=== PATIENT | female | born 1960 | race Caucasian/White ===

== ENCOUNTER → 2023-07-07 12:01 | Outpatient (REF) | payer OTHER, SELFPAY | LOC: PAVMRI 12:01 | PROVIDERS: ATTENDING PHYSICIAN Surgery Surgical Oncology; FAMILY PHYSICIAN Family Medicine | DX: D3A.8 Other benign neuroendocrine tumors (principal) | CPT/HCPCS: 74183; A9575 ==

== ENCOUNTER → 2023-07-17 14:50 | Outpatient (REF) | payer OTHER, SELFPAY | LOC: HWRAD 14:50 | PROVIDERS: ATTENDING PHYSICIAN Family Medicine | DX: G47.33 Obstructive sleep apnea (adult) (pediatric) (principal) | CPT/HCPCS: 70490; 71250 ==

== ENCOUNTER → 2023-09-01 09:00 | Outpatient (REF) | payer OTHER, SELFPAY | LOC: DHSLP 09:00 | PROVIDERS: ATTENDING PHYSICIAN Family Medicine | DX: G47.33 Obstructive sleep apnea (adult) (pediatric) (principal); R06.83 Snoring | CPT/HCPCS: 95800 ==

== ENCOUNTER → 2024-02-06 08:20 | Outpatient (REF) | payer OTHER, SELFPAY | LOC: MRI 3T 08:20 | PROVIDERS: FAMILY PHYSICIAN Family Medicine | DX: C25.4 Malignant neoplasm of endocrine pancreas (principal) | CPT/HCPCS: 74183; A9579 ==

== ENCOUNTER 2024-02-07 08:10 | Emergency (ER) | payer OTHER, SELFPAY ==
[2024-02-07 08:21] VITALS: BP 145/95
[2024-02-07 09:13] LABS: COVID-19 Antigen Negative (Negative)
--- NOTE | 2024-02-07 10:03 | ED.GENMED ---
History of Present Illness
General
Chief Complaint: Cough
Source: patient
Time Seen by Provider: 02/07/24 09:50
History of Present Illness
History of Present Illness:
This patient is a 63-year-old female who states that she has had 'bronchitis' leg symptoms since Monday. She describes a cough that is now productive of 'thick brown mucus', no hemoptysis, associated with subjective low-grade fever and mild
anorexia. She denies nausea, vomiting, leg swelling, abdominal pain, neck pain, headache. With the cough she will note discomfort along her ribs and back, no pain unless she is actually coughing. Sometimes she feels a little short of breath but
not currently. She worries that she has bronchitis and took a leftover dose of Zithromax at 3 PM yesterday.
Past History
Past History
ED Past Medical History: Hypothyroidism and Other (Celiac disease, peptic ulcer, back pain, pancreatic neuroendocrine cancer)
ED Past Surgical History: (X2) and Other (L4-L5 fusion, distal pancreectomyand splenectomy)
Social History
Tobacco: Former smoker
Alcohol: None
Drug: None
Personal:
Living: with family
Phy Exam
Physical Exam
Physical Exam:
GENERAL: Alert , in no apparent distress, pleasant, moves about the room easily
EYE: pupils equal and reactive, no photophobia
NECK: Supple, no significant adenopathy.
ENT: o/p clr, mmm.
CARDIAC: Regular rate and rhythm .
LUNGS: Clear breath sounds bilaterally, no acute respiratory distress, no wheezes/rales/rhonchi, occasional cough noted
ABDOMEN: Soft, without focal tenderness, no r/g, no cvat
NEUROLOGICAL: Alert and oriented, no focal neuro deficits
SKIN: Warm and dry, skin intact.
MUSCULOSKELETAL: No edema, well perfused.
PSYCH: Normal and appropriate interaction.
Course
Orders/Labs/Results
Orders:
Orders
02/07/24 08:26
Electrocardiogram (*1) Urgent
Reason for Study: Chest Pain
EKG- Treatment ONCE
02/07/24 08:41
COVID-19 Antigen Urgent
Source: Nasal Swab
Influenza A+B Rapid Molecular Urgent
YANNI Source: Nasal Swab
Specimen Description:
02/07/24 09:49
CR Chest - 2 Views Urgent
Comment:
Reason For Exam: sob/productive cough, chest tightness/pain
02/07/24 08:26
02/07/24 08:26
Vital Signs
Initial and Last Documented VS:
Initial Vital Signs
Temp Pulse Resp BP Pulse Ox
98.3 F 98 18 145/95 98
02/07/24 08:21 02/07/24 08:21 02/07/24 08:21 02/07/24 08:21 02/07/24 08:21
Last Documented Vital Signs
Temp Pulse Resp BP Pulse Ox
98.3 F 98 18 145/95 98
02/07/24 08:21 02/07/24 08:21 02/07/24 08:21 02/07/24 08:21 02/07/24 08:21
*Critical Care Note
Total Time (30-74mins, 75-104mins- exclusive of procedures): Not Applicable
Update Note
Update Note:
Patient presents to the Emergency Department with __cough
Number and Complexity of Problems Addressed at the Encounter
� Chronic conditions affecting care:
� Acute Exacerbation and/or Progression of Chronic Illness:
� Differential Diagnosis includes: But not limited to URI, bronchitis, pneumonia, flu, COVID, etc. etc.
Amount and/or Complexity of Data to be Reviewed and Analyzed
� I performed an independent evaluation of and my interpretation is:
EKG: Read by me, normal sinus rhythm, normal rate, normal axis, no acute ischemia
CT:
Xrays: Read by me, right basilar pneumonia confirmed by radiology
Laboratory Studies: Flu and COVID-negative
Other:
� Review of other/old records reveals: Patient had an MRI yesterday and no recurrence of cancer noted this was printed out and presented to the patient
� Clinical information was obtained by an independent historian:
� Prescriptions/Medications Considered but not given:
� Further testing considered but not performed:
Risk of Complications and/or Morbidity or Mortality of Patient Management
� Social determinants of health affecting care:
� Discussion with other providers (PCP, Hospitalists, Consultants, etc):
� Escalation of care including admission/observation vs risk of discharge considered: Patient does have a history of splenectomy has received her pneumonia vaccine, does not present with signs or symptoms to suggest sepsis.
Pneumonia noted. Will treat with antibiotics and instruct patient for close follow-up. ECG does not suggest ACS.
ED Attending Note
-
Portions of this chart may have been created with voice recognition software.� Occasional wrong word or��sound alike� substitutions may have occurred due to the inherent limitations of voice recognition software.
Discharge Plan
Departure
Patient Disposition: Home (Routine Discharge)
Date of Disposition: 02/07/24
Time of Disposition: 10:52
Patient with high blood pressure during this ER visit?: Yes
Condition: Good
Discharge Problem:
Pneumonia
Instructions: Pneumonia, Adult (DC), BLOOD PRESSURE
Prescriptions:
New
azithromycin [Zithromax Z-Jag] 250 mg tablet
250 mg PO DAILY 6 Days Qty: 6 0RF
No Action
Apple Cider Liquid
10 ml PO DAILY
therapeutic multivitamin Tablet
1 tab PO DAILY
levothyroxine [Synthroid] 25 mcg tablet
25 mcg PO DAILY
cholecalciferol (vitamin D3) [Vitamin D3] 25 mcg (1,000 unit) Tablet
25 mcg PO DAILY
Visbiome 112.5 billion cell Capsule
1 cap PO DAILY
turmeric 400 mg Capsule
400 mg PO DAILY
hydrocortisone acetate 25 mg Suppository
25 mg [place] HS 7 Days Qty: 7 0RF
polyethylene glycol 3350 17 gram/dose powder
17 g PO DAILY Qty: 510 0RF
Activity Restrictions/Additional Instructions:
PLEASE SEE YOUR DOCTOR IN CLOSE FOLLOW-UP. IF YOU DEVELOP SHORTNESS OF BREATH, INCREASING DISCOMFORT, PERSISTENT FEVER, VOMITING, DIZZINESS, BLEEDING, OR OTHER WORRISOME SIGNS, PLEASE RETURN TO THE ER IMMEDIATELY.
Interventions
Interventions:
*Risk Screen - Suicide Last Done: 02/07/24 08:21
*General Assessment Last Done: 02/07/24 08:21
*Neglect/Abuse Screening Last Done: 02/07/24 08:21
ED- Pulmonary Assessment Last Done: 02/07/24 10:42
Discharge Date and Time
Print Language: GREEK
--- NOTE | 2024-02-07 10:57 | ED.GENMED ---
History of Present Illness
General
Chief Complaint: Cough
Time Seen by Provider: 02/07/24 09:50
Past History
Past History
ED Past Medical History: Hypothyroidism and Other (Celiac disease, peptic ulcer, back pain, pancreatic neuroendocrine cancer)
ED Past Surgical History: (X2) and Other (L4-L5 fusion, distal pancreectomyand splenectomy)
Social History
Tobacco: Former smoker
Alcohol: None
Drug: None
Personal:
Living: with family
Course
Orders/Labs/Results
Orders:
Orders
02/07/24 08:26
Electrocardiogram (*1) Urgent
Reason for Study: Chest Pain
EKG- Treatment ONCE
02/07/24 08:41
COVID-19 Antigen Urgent
Source: Nasal Swab
Influenza A+B Rapid Molecular Urgent
YANNI Source: Nasal Swab
Specimen Description:
02/07/24 09:49
CR Chest - 2 Views Urgent
Comment:
Reason For Exam: sob/productive cough, chest tightness/pain
02/07/24 08:26
02/07/24 08:26
Vital Signs
Initial and Last Documented VS:
Initial Vital Signs
Temp Pulse Resp BP Pulse Ox
98.3 F 98 18 145/95 98
02/07/24 08:21 02/07/24 08:21 02/07/24 08:21 02/07/24 08:21 02/07/24 08:21
Last Documented Vital Signs
Temp Pulse Resp BP Pulse Ox
98.3 F 98 18 145/95 98
02/07/24 08:21 02/07/24 08:21 02/07/24 08:21 02/07/24 08:21 02/07/24 08:21
ED Attending Note
-
Portions of this chart may have been created with voice recognition software.� Occasional wrong word or��sound alike� substitutions may have occurred due to the inherent limitations of voice recognition software.
Discharge Plan
Departure
Patient Disposition: Home (Routine Discharge)
Date of Disposition: 02/07/24
Time of Disposition: 10:52
Patient with high blood pressure during this ER visit?: Yes
Condition: Good
Discharge Problem:
Pneumonia
Instructions: Pneumonia, Adult (DC), BLOOD PRESSURE
Prescriptions:
New
azithromycin [Zithromax Z-Jag] 250 mg tablet
250 mg PO DAILY 6 Days Qty: 6 0RF
No Action
Apple Cider Liquid
10 ml PO DAILY
therapeutic multivitamin Tablet
1 tab PO DAILY
levothyroxine [Synthroid] 25 mcg tablet
25 mcg PO DAILY
cholecalciferol (vitamin D3) [Vitamin D3] 25 mcg (1,000 unit) Tablet
25 mcg PO DAILY
Visbiome 112.5 billion cell Capsule
1 cap PO DAILY
turmeric 400 mg Capsule
400 mg PO DAILY
hydrocortisone acetate 25 mg Suppository
25 mg [place] HS 7 Days Qty: 7 0RF
polyethylene glycol 3350 17 gram/dose powder
17 g PO DAILY Qty: 510 0RF
Stand Alone Forms: Return to Work
Activity Restrictions/Additional Instructions:
PLEASE SEE YOUR DOCTOR IN CLOSE FOLLOW-UP. IF YOU DEVELOP SHORTNESS OF BREATH, INCREASING DISCOMFORT, PERSISTENT FEVER, VOMITING, DIZZINESS, BLEEDING, OR OTHER WORRISOME SIGNS, PLEASE RETURN TO THE ER IMMEDIATELY.
Interventions
Interventions:
*Risk Screen - Suicide Last Done: 02/07/24 08:21
*General Assessment Last Done: 02/07/24 08:21
*Neglect/Abuse Screening Last Done: 02/07/24 08:21
ED- Pulmonary Assessment Last Done: 02/07/24 10:42
Discharge Date and Time
Print Language: PERSIAN
== END 2024-02-07 11:08 | disposition home or self-care (01) ==
LOC: EMR 08:10
PROVIDERS: Emergency Medicine; EMERGENCY PHYSICIAN Emergency Medicine; FAMILY PHYSICIAN Family Medicine
DX: J18.9 Pneumonia, unspecified organism (principal); E03.9 Hypothyroidism, unspecified; K90.0 Celiac disease; Z87.11 Personal history of peptic ulcer disease; Z87.891 Personal history of nicotine dependence
CPT/HCPCS: 99283; 71046; 87502; 87811; 93005

== ENCOUNTER → 2024-03-07 12:57 | Outpatient (REF) | payer OTHER, SELFPAY | LOC: HWRAD 12:57 | PROVIDERS: ATTENDING PHYSICIAN Physician Assistant Medical | DX: J18.9 Pneumonia, unspecified organism (principal) | CPT/HCPCS: 71046 ==

== ENCOUNTER → 2024-09-12 07:50 | Outpatient (REF) | payer OTHER, SELFPAY | LOC: PAVMRI 07:50 | PROVIDERS: ATTENDING PHYSICIAN Surgery Surgical Oncology | DX: D3A.8 Other benign neuroendocrine tumors (principal) | CPT/HCPCS: 74183; A9575 ==